=== PATIENT | female | born 1955 | race Caucasian/White ===

== ENCOUNTER → 2016-10-19 | Outpatient (REF) | payer OTHER ==
[2016-10-19 17:39] LABS: BASO # 0.1 K/mm3 (0.0-0.2); BASO % 0.9 % (0.0-1.0); EOS # 0.1 K/mm3 (0.0-0.50); EOS % 1.6 % (0.0-3.0); LARGE UNSTAINED CELL # 0.2 K/mm3 (0.0-0.4); LARGE UNSTAINED CELL % 2.8 % (0.0-4.0); LYMPH % 32.4 % (24.0-44.0); MEAN CORPUSCULAR HEMOGLOBIN 28.5 pg (27.0-33.0); MEAN CORPUSCULAR HGB CONC 31.6 g/dl (32.0-36.5); MEAN CORPUSCULAR VOLUME 90.4 fl (80.0-96.0); MONO # 0.6 K/mm3 (0.0-0.8); MONO % 10.4 % (0.0-5.0); NEUTROPHILS # 3.2 K/mm3 (1.8-7.7); NEUTROPHILS % 51.8 % (36.0-66.0); PLATELET COUNT, AUTOMATED 393 k/mm3 (150-450); RED CELL DISTRIBUTION WIDTH 13.3 % (11.5-14.5); WHITE BLOOD COUNT 6.2 K/mm3 (4.0-10.0)
[2016-10-19 18:28] LABS: ALBUMIN 4.1 GM/DL (3.2-5.2); ALBUMIN/GLOBULIN RATIO 1.21 (1.00-1.93); ALKALINE PHOSPHATASE 74 U/L (45-117); ALT/SGPT 34 U/L (12-78); ANION GAP 6 MEQ/L (8-16); AST/SGOT 14 U/L (15-37); BILIRUBIN,TOTAL 0.5 MG/DL (0.2-1.0); BLOOD UREA NITROGEN 23 MG/DL (7-18); CALCIUM LEVEL 8.7 MG/DL (8.5-10.1); CARBON DIOXIDE LEVEL 29 MEQ/L (21-32); CHLORIDE LEVEL 105 MEQ/L (98-107); CHOLESTEROL LEVEL 211 MG/DL (<200); CREATININE FOR GFR 0.74 MG/DL (0.55-1.02); GLOMERULAR FILTRATION RATE > 60.0 (>51); GLUCOSE, FASTING 99 MG/DL (70-105); POTASSIUM SERUM 4.2 MEQ/L (3.5-5.1); SODIUM LEVEL 140 MEQ/L (136-145); TOTAL PROTEIN 7.5 GM/DL (6.4-8.2); TRIGLYCERIDES LEVEL 230 MG/DL (<150)
== END ==
LOC: M LAB REF 17:00
PROVIDERS: ATTEND Family Medicine
DX: E78.4 Other hyperlipidemia (principal); K21.9 Gastro-esophageal reflux disease without esophagitis; D12.6 Benign neoplasm of colon, unspecified

== ENCOUNTER → 2016-11-30 | Outpatient (CLI) | payer OTHER ==
--- NOTE | 2016-11-30 11:33 | REPMRS ---
Patient History The patient states she had a clinical breast exam in October 2016. Patient is postmenopausal and is nulliparous. No known family history of cancer. Digital Mammo Screening Bilat: November 30, 2016 - Exam #: [id number] Bilateral CC and MLO view(s) were taken. Technologist: Leola Baires, Technologist Prior study comparison: November 17, 2015, bilateral digital mammo screening bilat performed at [facility]. October 16, 2014, bilateral digital mammo screening bilat performed at [facility]. FINDINGS: There are scattered fibroglandular densities. There has been no change in the appearance of the mammogram from the prior studies. There is a mild amount of residual fibroglandular tissue which is fairly symmetric. There is no interval development of dominant mass, architectural distortion, or clustered microcalcification suggestive of malignancy. ASSESSMENT: BI-RADS/ACR category 1 mammogram. Negative. Recommendation Routine screening mammogram in 1 year (for women over age 40). This mammogram was interpreted with the aid of an FDA-approved computer-aided dectection system. Electronically Signed By: Zack Canas MD 11/30/16 1906
== END ==
LOC: M RAD 09:50
PROVIDERS: ATTEND Family Medicine
DX: Z12.31 Encounter for screening mammogram for malignant neoplasm of breast (principal)

== ENCOUNTER 2017-03-08 07:02 | Outpatient (CLI) | payer OTHER ==
[~2017-03-08] VITALS: Ht 162.6 cm; Wt 68.0 kg
[~2017-03-08 07:02] MED LIST: PANT40TA2 PO
[2017-03-08] MEDS ORDERED: NS 1,000 ML IV ONE (07:15)
[2017-03-08] MEDS ORDERED: PROPOFOL 200 MG/20 ML VIAL As Ordered ONE ×2 (07:57→08:27)
--- NOTE | 2017-03-08 08:37 | ROOR ---
Patient Name: Armida Crump Procedure Date: 03/08/2017 8:09 AM Date of : 1955 Age: 61 Room: [facility] Gender: Female Note Status: Finalized Procedure: Colonoscopy Indications: High risk colon cancer surveillance: Personal history of adenoma with high grade dysplasia Providers: Zack Grewal DO Referring MD: Bee Hampton DO Requesting Provider: Medicines: Propofol per Anesthesia Complications: No immediate complications. Procedure: Pre-Anesthesia Assessment: - Prior to the procedure, a History and Physical was performed, and patient medications and allergies were reviewed. The patient is competent. The risks and benefits of the procedure and the sedation options and risks were discussed with the patient. All questions were answered and informed consent was obtained. Patient identification and proposed procedure were verified by the physician, the nurse, the anesthesiologist and the chemical treatment plant technician in the endoscopy suite. Mental Status Examination: alert and oriented. Airway Examination: normal oropharyngeal airway and neck mobility. Respiratory Examination: clear to auscultation. CV Examination: normal. Prophylactic Antibiotics: The patient does not require prophylactic antibiotics. Prior Anticoagulants: The patient has taken no previous anticoagulant or antiplatelet agents. ASA Grade Assessment: II - A patient with mild systemic disease. After reviewing the risks and benefits, the patient was deemed in satisfactory condition to undergo the procedure. The anesthesia plan was to use monitored anesthesia care (MAC). Immediately prior to administration of medications, the patient was re-assessed for adequacy to receive sedatives. The heart rate, respiratory rate, oxygen saturations, blood pressure, adequacy of pulmonary ventilation, and response to care were monitored throughout the procedure. The physical status of the patient was re-assessed after the procedure. The Colonoscope was introduced through the anus and advanced to the cecum, identified by the appendiceal orifice, ileocecal valve and palpation. The colonoscopy was performed without difficulty. The patient tolerated the procedure well. Findings: The perianal exam findings include internal hemorrhoids (Grade I). The exam was otherwise without abnormality on direct and retroflexion views. Impression: - Internal hemorrhoids (Grade I) found on perianal exam. - The examination was otherwise normal on direct and retroflexion views. - No specimens collected. Recommendation: - Patient has a contact number available for emergencies. The signs and symptoms of potential delayed complications were discussed with the patient. Return to normal activities tomorrow. Written discharge instructions were provided to the patient. - Repeat colonoscopy in 5 years for surveillance. Zack Grewal DO 03/08/2017 8:37:09 AM This report has been signed electronically. Number of Addenda: 0 Note Initiated On: 03/08/2017 8:09 AM Estimated Blood Loss: Estimated blood loss: none.
[2017-03-08 08:55] VITALS: BP 153/75
== END 2017-03-08 09:31 | disposition home or self-care (01) ==
LOC: M OPP 07:02
PROVIDERS: ATTEND Surgery
DX: Z09 Encounter for follow-up examination after completed treatment for conditions other than malignant neoplasm (principal); Z86.010 Personal history of colon polyps; K64.0 First degree hemorrhoids; R12 Heartburn; K21.9 Gastro-esophageal reflux disease without esophagitis; Z78.0 Asymptomatic menopausal state; Z85.828 Personal history of other malignant neoplasm of skin; Z88.2 Allergy status to sulfonamides; Z79.899 Other long term (current) drug therapy; Z80.8 Family history of malignant neoplasm of other organs or systems

== ENCOUNTER → 2017-11-17 | Outpatient (REF) | payer OTHER ==
[2017-11-17 18:13] LABS: BASO # 0.1 10^3/uL (0.0-0.2); BASO % 1.4 % (0.0-1.0); EOS # 0.1 10^3/uL (0.0-0.50); EOS % 1.5 % (0.0-3.0); HEMATOCRIT 44.5 % (36.0-47.0); HEMOGLOBIN 14.5 g/dl (12.0-15.5); IMMATURE GRANULOCYTE % 0.2 % (0-3.0); LYMPH # 2.4 10^3/uL (1.5-4.5); LYMPH % 35.4 % (24.0-44.0); MEAN CORPUSCULAR HEMOGLOBIN 29.2 pg (27.0-33.0); MEAN CORPUSCULAR HGB CONC 32.6 g/dl (32.0-36.5); MEAN CORPUSCULAR VOLUME 89.7 fl (80.0-96.0); MONO # 0.6 10^3/uL (0.0-0.8); MONO % 8.9 % (0.0-5.0); NEUTROPHILS # 3.5 10^3/uL (1.8-7.7); NEUTROPHILS % 52.6 % (36.0-66.0); PLATELET COUNT, AUTOMATED 406 10^3/uL (150-450); RED BLOOD COUNT 4.96 10^6/uL (4.00-5.40); RED CELL DISTRIBUTION WIDTH 13.8 % (11.5-14.5); WHITE BLOOD COUNT 6.7 10^3/uL (4.0-10.0)
[2017-11-17 18:33] LABS: ALBUMIN 4.3 GM/DL (3.2-5.2); ALBUMIN/GLOBULIN RATIO 1.13 (1.00-1.93); ALKALINE PHOSPHATASE 77 U/L (45-117); ALT/SGPT 25 U/L (12-78); ANION GAP 7 MEQ/L (8-16); AST/SGOT 15 U/L (7-37); BILIRUBIN,TOTAL 0.7 MG/DL (0.2-1.0); BLOOD UREA NITROGEN 25 MG/DL (7-18); CALCIUM LEVEL 9.4 MG/DL (8.8-10.2); CARBON DIOXIDE LEVEL 28 MEQ/L (21-32); CHLORIDE LEVEL 105 MEQ/L (98-107); CHOLESTEROL LEVEL 239 MG/DL (<200); CHOLESTEROL RISK RATIO 4.425 (<5); CREATININE FOR GFR 0.71 MG/DL (0.55-1.30); GLOMERULAR FILTRATION RATE > 60.0 (>45); GLUCOSE, FASTING 104 MG/DL (70-100); HDL CHOLESTEROL 54 MG/DL (>40); LDL CHOLESTEROL 150.8 MG/DL (<100); NON-HDL-C 185 MG/DL; POTASSIUM SERUM 4.3 MEQ/L (3.5-5.1); SODIUM LEVEL 140 MEQ/L (136-145); TOTAL PROTEIN 8.1 GM/DL (6.4-8.2); TRIGLYCERIDES LEVEL 171 MG/DL (<150)
== END ==
LOC: M LAB REF 16:50
DX: Z00.00 Encounter for general adult medical examination without abnormal findings (principal); K44.9 Diaphragmatic hernia without obstruction or gangrene; M25.562 Pain in left knee
CPT/HCPCS: 80053

== ENCOUNTER → 2017-12-04 | Outpatient (CLI) | payer BC | LOC: M RAD 09:06 | DX: Z12.31 Encounter for screening mammogram for malignant neoplasm of breast (principal) ==